=== PATIENT | female | born 1945 | race Caucasian/White ===

== ENCOUNTER 2020-07-07 11:11 | Outpatient (CLI) | payer MEDICARE, SELFPAY ==
--- NOTE | 2020-07-07 | ECG_ITS ---
Measurements Intervals [place] Rate: 60 P: -19 [place]: 132 QRS: 4 QRSD: 88 T: 67 QT: 426 QTc: 429 Interpretive Statements SINUS RHYTHM INCOMPLETE RIGHT BUNDLE BRANCH BLOCK LEFT VENTRICULAR HYPERTROPHY WITH ST-T CHANGE BORDERLINE ECG Electronically Signed On 07-07-2020 12:11:07 CDT by Nestor Anaya D.O.
--- NOTE | ~2020-07-07 | XR_ITS ---
EXAMINATION: XR chest 2V DATE: 07/07/2020 12:18 INDICATION: Chest pain, unspecified. TECHNIQUE: Frontal and lateral views of the chest were obtained. COMPARISON: Chest single view 05/16/2005 FINDINGS: The chest demonstrates clear lungs without pneumonia, pleural effusion, or pneumothorax. Th e heart size is normal. Median sternotomy wires and mediastinal surgical clips are seen, likely from prior coronary artery bypass grafting. Surgical clips in the right upper quadrant are likely from cho lecystectomy. IMPRESSION: 1. No acute cardiopulmonary disease. Reviewed, dictated and finalized at location B.
[2020-07-07 11:39] LABS: Hematocrit 41.9 % (37.0-47.0); Hemoglobin 14.2 g/dL (12.0-15.0); Mean Corpuscular HGB Conc 33.9 g/dl (32-36); Mean Corpuscular Hemoglobin 30.4 pg (26-34); Mean Corpuscular Volume 89.7 fl (80-100); Mean Platelet Volume 10.9 fl (7.4-10.4); Platelet Count Result 192 k/mm3 (150-375); Red Blood Count 4.67 M/mm3 (4.2-5.4); Red Cell Distribution Width 13.5 % (11.5-14.5); White Blood Count 8.3 K/mm3 (4.5-10.0)
[2020-07-07 11:52] LABS: Alanine Aminotransferase 19 U/L (4-35); Albumin Level 4.5 g/dL (3.5-5.1); Alkaline Phosphatase 55 U/L (38-126); Anion Gap 8 mmol/L (8-16); Aspartate Amino Transferase 38 U/L (14-36); Bilirubin,Total 0.7 mg/dL (0.2-1.3); Blood Urea Nitrogen 18 mg/dL (7-17); Calcium 9.1 mg/dL (8.4-10.2); Carbon Dioxide 28 mmol/L (22-30); Chloride 102 mmol/L (98-107); Cholesterol 140 mg/dL (0-200); Estimated Glomerular Filt Rate > 60; Glucose 120 mg/dL (65-105); HDL Direct 60 mg/dL; Potassium 4.1 mmol/L (3.4-5.0); Sodium 138 mmol/L (137-145); Triglycerides 77 mg/dL (<150)
[2020-07-07 11:54] LABS: D Dimer 0.41 ug/mL (<0.48)
[2020-07-07 12:03] LABS: LDL Cholesterol Direct 59 mg/dL; Troponin I < 0.012 ng/mL (0.000-0.034)
== END 2020-07-07 11:12 | disposition home or self-care (01) ==
PROVIDERS: PCP Family Medicine; Visit Provider Family Medicine
DX: E78.2 Mixed hyperlipidemia (principal); E03.9 Hypothyroidism, unspecified; I10 Essential (primary) hypertension; R06.02 Shortness of breath; R07.9 Chest pain, unspecified; I25.10 Atherosclerotic heart disease of native coronary artery without angina pectoris; E11.9 Type 2 diabetes mellitus without complications; I45.10 Unspecified right bundle-branch block
CPT/HCPCS: 36415; 71046; 80053; 80061; 83036; 84443; 84484; 85027; 85380; 93005

== ENCOUNTER 2020-12-12 11:21 | Outpatient (CLI) | payer MEDICARE, SELFPAY ==
--- NOTE | ~2020-12-12 | XR_ITS ---
EXAMINATION: XR wrist LT min 3V DATE: 12/12/2020 11:41 INDICATION: Left wrist joint pain. TECHNIQUE: 4 views of left wrist were obtained. COMPARISON: None. FINDINGS: There is volar tilt of lunate, consistent with volar intercalated segmental instability. Sc apholunate dissociation is noted with rotatory subluxation of the scaphoid. No fracture. There is mil d osteoarthritis of first carpometacarpal joint. There is a 4 mm loose body dorsal to the carpus. IMPRESSION: 1. Scapholunate dissociation. 2. Volar intercalated segmental instability (VISI). 3. Mild osteoporosis of first carpometacarpal joint. 4. Loose body dorsal to the carpus. Reviewed, dictated and finalized at location B. TAIN SERVICES MANAGER
--- NOTE | ~2020-12-12 | XR_ITS ---
EXAMINATION: XR wrist RT min 3V DATE: 12/12/2020 11:41 INDICATION: Right wrist joint pain. TECHNIQUE: 4 views of right wrist were obtained. COMPARISON: None. FINDINGS: Bone alignment is normal. No fracture. There is moderate osteoarthritis of first carpometac arpal joint, severe osteoarthritis of third metacarpophalangeal joint, and mild osteoarthritis of fir st and second metacarpophalangeal joints. IMPRESSION: 1. Polyarticular osteoarthritis. Reviewed, dictated and finalized at location B. [employer]OR [employer] HANDLING
== END 2020-12-12 11:22 | disposition home or self-care (01) ==
PROVIDERS: PCP Family Medicine; Visit Provider Plastic Surgery
DX: M19.031 Primary osteoarthritis, right wrist (principal); M19.032 Primary osteoarthritis, left wrist; M81.0 Age-related osteoporosis without current pathological fracture; M24.032 Loose body in left wrist
CPT/HCPCS: 73110

== ENCOUNTER 2021-04-07 08:44 | Outpatient (CLI) | payer MEDICARE, SELFPAY ==
--- NOTE | ~2021-04-07 | DEXA_ITS ---
Bone Density Report Name: Rubia Kelly Age: 75 Sex: Female Ethnicity: White Date of : 1945 Indication: postmenopausal; height loss; prior fracture; Referring Provider: TED ELLSWORTH Study: Bone densitometry was performed. Exam Date: April 07, 2021 Accession number: [id number] Bone Density: Region BMD T-score Z-score Classification AP Spine (L1, L2, L3) 1.172 1.4 3.7 Normal Femoral Neck (Left) 0.745 -0.9 1.1 Normal Total Hip (Left) 0.824 -1.0 0.8 Normal Total Hip Bilateral Avg 0.842 -0.8 1.0 Normal Femoral Neck (Right) 0.710 -1.3 0.8 Osteopenia Total Hip (Right) 0.859 -0.7 1.1 Normal World Health Organization criteria for BMD impression classify patients as: Normal (T-score at or above -1.0), Osteopenia (T-score between -1.0 and -2.5), or Osteoporosis (T-score at or below -2.5). 10-year Fracture Risk(1): Major Osteoporotic Fracture 15% Hip Fracture 2.3% Reported Risk Factors: [place] (), Neck BMD=0.710, BMI=31.9, previous fracture (1) FRAX(R) Version 3.08. Fracture probability calculated for an untreated patient. Fracture probability may be lower if the patient has received treatment. Clinical Information Provided by Patient: Has had a low trauma fracture Patient maximum height was 65 Menopause Age: 56 No regular weight bearing exercise Does not regularly consume dairy products Drinks caffeinated beverages Onset of menses at age 14 Number of children 2 Impression: The patient has low bone mass, based on the Right Femoral Neck T-score. The patient has an estimated ten-year risk of hip fracture of 2.3% and an estimated ten-year risk of major fracture of 15%, based on the WHO FRAX algorithm. The patient has risk factors, including: previous fracture. Discussion: BONE DENSITY IS LOW AT ONE OR MORE SKELETAL SITES. This patient's lowest T-score is low at one or more skeletal sites. It meets the World Health Organization's (WHO) criteria for ?low bone mass? (T-score between -1.0 and -2.5). The patient's 10-year risk of fracture as calculated by FRAX is less than the threshold where pharmacological therapy is recommended by the National Osteoporosis Foundation (NOF). However, all treatment decisions require clinical judgment and consideration of individual patient factors, including patient preferences, comorbidities, previous drug use, risk factors not captured in the FRAX model (e.g., frailty, falls, vitamin D deficiency, increased bone turnover, interval significant decline in bone density) and possible under or overestimation of fracture risk by FRAX. The patient should follow a healthful lifestyle (good nutrition with adequate calcium and vitamin D, and appropriate weight-bearing exercise). Follow-Up: Consider repeating this study in 2 to 3 years to reassess this patient's status, or so
== END 2021-04-07 08:45 | disposition home or self-care (01) ==
PROVIDERS: PCP Family Medicine; Visit Provider Family Medicine
DX: Z78.0 Asymptomatic menopausal state (principal); M85.88 Other specified disorders of bone density and structure, other site
CPT/HCPCS: 77080

== ENCOUNTER → 2022-07-18 08:11 | Outpatient (CLI) | payer MEDICARE, SELFPAY ==
--- NOTE | ~2022-07-18 | XR_ITS ---
EXAMINATION: XR lumbar spine min 4V DATE: 07/18/2022 08:21 INDICATION: Low back pain TECHNIQUE: Anteroposterior, lateral, and bilateral oblique views of the lumbar spine, and cone-down l ateral view of the lumbosacral junction were obtained. COMPARISON: 07/08/2014 FINDINGS: There are stable changes of L4-5 posterior fusion on the right, anterior interbody fusion, and laminectomy. There are 5 mm of stable anterolisthesis of L4 on L5. There is no fracture. There is moderate to severe loss of intervertebral disc space height throughout the lumbar spine. The vertebr al body heights are maintained. Calcified atherosclerosis is noted. There is moderate facet osteoarth ritis of the lower lumbar spine. A moderate volume of colonic stool is present. Surgical clips in the right upper quadrant are likely from prior cholecystectomy. IMPRESSION: 1. Postsurgical changes and severe lumbar spondylosis without acute findings or significant interval change. Reviewed, dictated and finalized at location B.
== END ==
PROVIDERS: PCP Family Medicine; Visit Provider Family Medicine
DX: M47.896 Other spondylosis, lumbar region (principal)
CPT/HCPCS: 72110

== ENCOUNTER 2025-03-04 16:27 | Emergency (ER) | payer MEDICARE, SELFPAY ==
--- NOTE | ~2025-03-04 | XR_ITS ---
EXAMINATION: XR chest 2V DATE: 03/04/2025 17:10 INDICATION: Rib cage pain post fall TECHNIQUE: PA and lateral views of the chest were obtained. COMPARISON: Chest radiograph dated 07/07/2020 FINDINGS: Mild bibasilar opacities and would favor atelectasis or minimal pulmonary edema or pneumonia. No pleu ral effusion or pneumothorax. The cardiomediastinal silhouette is normal. Mild cardiomegaly. Median s ternotomy wires, ostial markers and mediastinal surgical clips consistent with prior coronary artery bypass grafting. Cholecystectomy clips in the right upper quadrant. Severe thoracic and upper lumbar spondylosis. IMPRESSION: 1. Mild bibasilar opacities and favor atelectasis or minimal pulmonary edema over pneumonia. 2. Cardiomegaly. Reviewed, dictated and finalized at location A. IMPRESSION: 1. Mild bibasilar opacities and favor atelectasis or minimal pulmonary edema ov er pneumonia. 2. Cardiomegaly.
--- NOTE | ~2025-03-04 | CT_ITS ---
CT thoracic lumbar wo con Ordering provider: Deysi Montilla PA-C History: . back pain, fall . Comparison: None. Technique: CT thoracic and lumbar spine without contrast. Automated exposure control and iterative r econstruction technique were employed. The dose-length product was 872.39 mGy-cm. FINDINGS: VERTEBRAE: Normal height and alignment. No subluxation or visible acute fracture. Degenerative change s of the spine and both thoracic and lumbar area. Postoperative changes in the sternum Postoperative changes in the lumbar spine. Minimal anterolisthesis at the level of L4-L5 and L5-S1. DISC SPACES: Degenerative disc disease at multiple levels in the lower thoracic area.. Narrowing of a ll the disc spaces of the lumbar area. No significant stenosis as visualized. Multilevel facet joint disease in the lumbar area. Narrowing of the left foramina at the level of L3- L4 and L2-L3. Diffuse disc bulge at the level of L5-S1 with bilateral narrowing of the foramina and r ight nerve root compression. PARASPINOUS SOFT TISSUES: Normal. Bilateral sacroiliacs. IMPRESSION: No acute osseous abnormality of the thoracic spine. Multilevel degenerative disc disease in the lumbar and thoracic area. Reviewed, dictated and finalized at location A.
--- NOTE | ~2025-03-04 | CT_ITS ---
EXAMINATION: CT cervical spine wo con DATE: 03/04/2025 17:18 INDICATION: Fall with head injury TECHNIQUE: Computed tomography (CT) of the cervical spine was performed without intravenous contrast. Automated exposure control and iterative reconstruction technique were employed. The dose-length pro duct was 258.09 mGy-cm. COMPARISON: None FINDINGS: Mild reversal of the normal lordosis in the mid cervical spine. 2 mm anterolisthesis C7 on T1 and 1 m m anterolisthesis C3 on C4 and C4 on C5. Severe osteoarthritis at the atlantoaxial articulation. Vert ebral body heights are normal. No fracture. Severe disc height loss with degenerative endplate change s, severe uncovertebral osteoarthritis and prominent posterior endplate osteophytes resulting in mild central canal stenosis at C5-C6 and moderate left-sided predominant disc height loss at C6-C7. Mild disc height loss at C2-C3 and mild to moderate disc height loss at C4-C5 and C7-T1. There is multilev el severe bilateral cervical facet osteoarthritis with fusion at the bilateral C2-C3 facet joints. Th is results in moderate neural from stenosis on the right at C3-C4 and on the left at C4-C5 and C5-C6 with mild neural foraminal stenosis at many of the remaining cervical neural foramina. Atheroscleroti c calcifications at the bilateral carotid bulbs. Cervical soft tissues are otherwise unremarkable. Mi nimal biapical pleural-parenchymal scarring. IMPRESSION: 1. Severe cervical spondylosis. No acute osseous abnormality. Reviewed, dictated and finalized at location A.
--- NOTE | ~2025-03-04 | CT_ITS ---
EXAMINATION: CT brain wo con DATE: 03/04/2025 17:18 INDICATION: Head injury post fall TECHNIQUE: Computed tomography (CT) of the head was performed without intravenous contrast. Sagittal and coronal reconstructions were performed. The mA was adjusted according to patient size. Iterative reconstruction technique was employed. The dose-length product was 605.33 mGy-cm. COMPARISON: None FINDINGS: No fracture. No acute intracranial hemorrhage, acute infarction or abnormal extra axial fluid collect ion. Small lacunar infarcts at the bilateral basal ganglia and thalami. There is extensive scattered white matter hypoattenuation consistent with chronic small vessel ischemic disease. Symmetric promine nce of the sulci consistent with mild age-appropriate diffuse cerebral volume loss. Ventricles are no rmal and symmetric. No mass/mass effect. The orbits, paranasal sinuses and mastoid air cells are norm al. IMPRESSION: 1. No fracture or acute intracranial process. 2. Small old lacunar infarcts at the bilateral basal ganglia and thalami. 3. Age-related changes including mild diffuse volume loss and extensive scattered white matter hypoat tenuation consistent with chronic small vessel ischemic disease. Reviewed, dictated and finalized at location A. IMPRESSION: 1. No fracture or acute intracranial process. 2. Small old lacunar infarcts at the bilateral basal ganglia and thalami. 3. Age-related changes including mild diffuse volume loss and extensive scatter ed white matter hypoattenuation consistent with chronic small vessel ischemic d isease.
--- OUTSIDE RECORDS SUMMARY | 2025-03-04 16:30 | XMS_ITS ---
Author Organization [facility] [address] Address [address] [place] [address] Care Team Providers Care Lab Tech Name Role Phone Sindy Carrillo MD Primary Care Provider [phone] Emerald Evans NP Unavailable [phone] Luis E Banks MD Unavailable [phone] Active Problems Problem Noted Date Diagnosed Date Endometrial cancer 03/04/2024 Cancer Staging:Pathologic stage from 03/15/2024:FIGO Stage IB(pT1b, pN0, cM0) - Signed by Ashleigh Carreon, ITZEL on 03/31/2024 Abnormal stress test 08/07/2023 Bradycardia 11/03/2019 History of coronary artery bypass surgery 2015 Overview (02/28/2017): Hx of CABG Coronary artery disease of n ative artery of [place] heart with stable angina pectoris ([facility]) 08/16/2016 Overview (02/28/2017): CAD in [place] artery Assessment & Plan (07/15/2017 4:46 PM CDT): Twenty weight: CABG 2014: Lexiscan showed no ischemia, EF 72% Doing well with no angina on aspirin, beta-augustine, statin, and LEANN-inhibitor. Hyperlipidemia associated with type 2 diabetes case espino 08/16/2016 Overview (02/28/2017): Hypercholesteremia Essential hypertension 08/16/2016 Overview (02/28/2017): Essential hypertension Assessment & Plan (07/15/2017 4:47 PM CDT): Hypertension is improving with treatment. Continue current medications. Blood pressure will be reassessed at the next regular appointment. Obesity (BMI 30-39.9) 08/16/2016 Overview (02/28/2017): Obesity (BMI 30-39.9) Assessment & Plan (07/15/2017 4:47 PM CDT): Obesity is unchanged. Angina pectoris 01/19/2008 Overview (02/27/2017): ANGINA PECTORIS NEC/NOS Current Treatment and Therapy Plans No current plan information found. Past Treatment and Therapy Plans No past plan information found. Lifetime Dose Tracking * Chemical Lifetime Dose Automatic Entry Manual Entr y Air kerma at the reference point (Ka,r) 214 mGy 0 mGy 214 mGy Resolved Problems Problem Noted Date Diagnosed Date Resolved Date Orthopnea 07/15/2017 03/05/2024 Assessment & Plan (07/15/2017 4:49 PM CDT): Had an episode of possible orthopnea several months ago with no recurrence BNP slightly elevated 256. Patient could have some diastolic dysfunction and perhaps very mild diastolic CHF but since has been no recurrence of the orthopnea for several months I do not think he a major workup is in order. Will check an EKG for any changes to suggest any recent SD etc EF has been good in 2016, so likely still fine. Pure hypercholesterolemia 01/19/2008 Overview (02/28/2017): PURE HYPERCHOLESTEROLEM Assessment & Plan (07/15/2017 4:48 PM CDT): 05/2017 total cholesterol 128, LDL 56, at goal with rosuvastatin 40 mg daily.
--- OUTSIDE RECORDS SUMMARY | 2025-03-04 16:30 | XMS_ITS | Clinical Summary ---
Author Organization [facility] Address [address] [place] [address] Care Team Providers Care Teacher Dramatics Name Role Phone Sindy Carrillo MD Primary Care Provider [phone] Social History Tobacco Use Types Packs/Day Years Used Date Smoking Tobacco: Never Assessed Comments Unknown Sex and Gender Information Value Date Recorded Sex Assigned at Not on file Legal Sex Female 8:19 PM CDT Gender Identity Not on file Sexual Orientation Not on file Last Filed Vital Signs Vital Sign Reading Time Taken Comments Blood Pressure 90/60 07/11/2014 12:21 PM CDT Pulse 60 07/11/2014 12:21 PM CDT Temperature - - Respiratory Rate - - Oxygen Saturation - - Inhaled Oxygen Concentration - - Weight 95.3 kg (210 lb) 07/11/2014 12:21 PM CDT Height 160 cm (5' 3 ) 07/11/2014 12:21 PM CDT Body Mass Index 37.2 07/11/2014 12:21 PM CDT Plan of Treatment Health Maintenance Due Date Last Done Comments Hepatitis C 1963 DTaP, Tdap and Td Vaccines ( 1 - Tdap) 1965 Zoster Vaccines (1 of 2) 1996 Dexa Scan (General) 2011 Pneumococcal Vaccine: 65+ Ye ars (1 of 1 - PCV) 2011 RSV Immunization or 60+ Years (1 - 1-dose 75+ series) 2021 COVID-19 Vaccine ( - 2023-2 5 season) 2024 Meningococcal B Vaccine Aged Out No l onger eligible based on patient's age to complete this topic Meningococcal Vaccine Aged Out No tonya noa eligible based on patient's age to complete this topic RSV Immunizations Under 20 Months Aged Out No longer eligible based on patient's age to complete this topic Care Teams Teacher Dramatics Relationship Specialty Start Date End Date Sindy Carrillo MD PCP - General 01/11/14
--- OUTSIDE RECORDS SUMMARY | 2025-03-04 16:30 | XMS_ITS | Referral Summary ---
Author Organization [facility] [address] Address [address] [place] [address] Care Team Providers Care Publicity Consultant Name Role Phone Sindy Carrillo MD Primary Care Provider [phone] Emerald Evans NP Unavailable [phone] Luis E Banks MD Unavailable [phone] Encounters Date Type Department Care Team Description 01/24/2025 2:00 PM ADVISORY SERVICES ASSOCIATE Office Visit [facility] Obstetrics and Gynecology [address] [facility] [address] [place] [address] Ashleigh Carreon NP Encounter for routine cancer follow-up (Primary Dx); Endometrial cancer (HCC) 12/23/2024 Telephone [facility] Obstetrics and Gynecology [address] [place] [address] Lary Dutton from Last 3 Months Allergies Active Allergy Reactions Criticality Noted Date Comments Naproxen Hives Medium Penicillins Rash,Other (See comments),Fever High Skin peeled off Medications aspirin 81 mg tablet Take one by mouth one time per day 0 0 02/12/20 08 Active Additional Information Patient taking differently:81 mgoral Every morning, Indications: prevention of thrombosis, Informant: Self, Reported on 03/11/2024 calcium carbonate-vitamin D3 (OS-TANNER 500 + D3) 1,250mg (500mg elemental) - 200 units per tablet Take as directed 0 0 03/08/20 08 Active Additional Information Patient taking differently: 1 tablet oral Every morning, Indications: Hypocalcemia Prevention, Prevention of Vitamin D Deficiency, Informant: Self, Reported on 03/11/2024 levothyroxine (SYNTHROID) 25 mcg tablet take 1 tablet by oral route every day 0 0 07/03/20 15 Active Additional Information Patient taking differently:25 mcgoral Daily (early AM), Indications: hypothyroidism, Informant: Self, Reported on 03/11/2024 furosemide (LASIX) 40 mg tablet Take 1/2 by mouth one time per day 45 3 03/08/20 08 Active Additional Information Patient taking differently:40 mgoral Every morning, Indications: Edema, Informant: Self, Reported on 03/11/2024 cholecalciferol (VITAMIN D3) 1,000 unit capsule take 1 by oral route every day 0 01/14/20 11 Active Additional Information Patient taking differently: 1,000 Units oral Every morning, Indications: Vitamin D Deficiency, Informant: Self, Reported on 03/11/2024 cyanocobalamin (VITAMIN B-12) 2,500 mcg tablet, sublingual take as directed 0 03/23/20 12 Active Additional Information Patient taking differently:2,500 mcgoral Every morning, Indications: Prevention of Vitamin B12 Deficiency, Informant: Self, Reported on 03/11/2024 sertraline (ZOLOFT) 50 mg tablet Take one by mouth one time per day 0 0 01/19/20 08 Active Additional Information Patient taking differently:50 mgoral Nightly, Indications: Anxiety with Depression, Informant: Self, Reported on 03/11/2024 multivitamin,tx-min erals (MULTI-VITAMIN HP/MINERALS) capsule Take one by mouth one time per day 0 0 01/19/20 08 Active Additional Information Patient taking differently: 1 capsule oral Every morning, Indications: Vitamin Deficiency Prevention, Informant: Self, Reported on 03/11/2024 acetaminophen-aspir in-caffeine (EXCEDRIN MIGRAINE) 250-250-65 mg per tabletIndications:P ain Take 1 tablet by mouth every 6 (six) hours as needed Active nitroglycerin (NITROSTAT) 0.4 mg SL tabletIndications:a cute episode of anginal pain,shortness with breath Place 1 tablet (0.4 mg total) under the tongue every 5 (five) minutes as needed 01/08/20 23 Active rosuvastatin (CRESTOR) 40 mg tablet TAKE 1 TABLET BY MOUTH DAILY 90 tablet 3 01/19/20 24 Active Additional Information Patient taking differently:40 mg oralNightly, Indications: hyperlipidemia, Informant: Self, Reported on 03/11/2024 potassium chloride ER 10 mEq CR capsule Take 1 tablet/capsule (10 mEq total) by mouth 2 (two) times a day 07/05/20 24 Active isosorbide mononitrate ER (IMDUR) 60 mg 24 hr tabletIndications:p revention of anginal pain in coronary artery disease Take 1 tablet (60 mg total) by mouth every morning 90 tablet 3 09/24/20 24 025 Active ramipriL (ALTACE) 10 mg capsuleIndications: hypertension Take 1 capsule (10 mg total) by mouth every morning 90 capsule 1 01/25/20 25 Active metoprolol XL (TOPROL-XL) 25 mg extended release tabletIndications:h ypertension Take 0.5 tablets (12.5 mg total) by mouth every morning 45 tablet 2 03/02/20 25 Active metoprolol XL (TOPROL-XL) 25 mg extended release tabletIndications:C oronary arteriosclerosis in [place] artery,Essential hypertension TAKE ONE-HALF TABLET BY MOUTH DAILY 45 tablet 3 01/19/20 24 025 Disconti nued(Reo rder) Active Problems Problem Noted Date Diagnosed Date Endometrial cancer 03/04/2024 Cancer Staging:Pathologic stage from 03/15/2024:FIGO Stage IB(pT1b, pN0, cM0) - Signed by Ashleigh Carreon NP on 03/31/2024 Abnormal stress test 08/07/2023 Bradycardia 11/03/2019 History of coronary artery bypass surgery 2015 Overview (02/28/2017): Hx of CABG Coronary artery disease of n ative artery of [place] heart with stable angina pectoris (CMS/HCC) 08/16/2016 Overview (02/28/2017): CAD in [place] artery Assessment & Plan (07/15/2017 4:46 PM [...] pectoris 01/19/2008 Overview (02/27/2017): ANGINA PECTORIS NEC/NOS Resolved Problems Problem Noted Date Diagnosed Date [...] for any changes to suggest any recent [place] etc EF has been good in 2016, so likely still fine. Pure hypercholesterolemia 01/19/2008 Overview (02/28/2017): PURE HYPERCHOLESTEROLEM Assessment & Plan (07/15/2017 4:48 PM CDT): 05/2017 total cholesterol 128, LDL 56, at goal with rosuvastatin 40 mg daily. Immunizations Immunization Administration Dates Next Due Influenza, Quadrivalent, Hig h Dose, Preservative Free, Intrr 08/28/2020 Influenza, Trivalent, High D ose, Split, Preservative Free, Intramuscular 09/15/2018 Influenza, Trivalent, IM (MDV) 09/29/2014,2012 Pneumococcal Conjugate PCV 13 08/06/2016 Pneumococcal Polysaccharide PPV23 10/15/2017 Social History Tobacco Use Types Packs/Day Years Used Date Smoking Tobacco: Never Smokeless Tobacco: Never Tobacco Cessation:Counseling Given: Not Answered Alcohol Use Standard Drinks/Week Comments No 0 (1 standard drink = 0.6 oz pur e alcohol) AUDIT-C Answer Date Recorded Q1: How often do you have a drink containing alcohol? Never 03/15/2024 Q2: How many drinks containi ng alcohol do you have on a typical day when you are drinking? Patient does not drink Q3: How often do you have si x or more drinks on one occasion? Never 03/15/2024 Personal Safety Answer Date Recorded Have you ever been in or are you currently in a harmful physical or emotional relationship or is someone making you feel afraid or unsafe? Denies 03/15/2024 Comments No Sex and Gender Information Value Date Recorded Sex Assigned at Not on file Legal Sex Female 4:40 PM ADVISORY SERVICES ASSOCIATE Gender Identity Female 07/09/2023 10:03 PM CDT Sexual Orientation Straight 07/09/2023 10 :03 PM CDT Last Filed Vital Signs Vital Sign Reading Time Taken Comments Blood Pressure 116/68 01/24/2025 1:54 PM ADVISORY SERVICES ASSOCIATE Pulse 60 01/24/2025 1:54 PM ADVISORY SERVICES ASSOCIATE Temperature 36.8 C (98.2 F) 01/24/2025 1:54 PM ADVISORY SERVICES ASSOCIATE Respiratory Rate 16 09/02/2024 10:45 AM CDT Oxygen Saturation 95% 01/24/2025 1:54 PM ADVISORY SERVICES ASSOCIATE Inhaled Oxygen Concentration - - Weight 75.8 kg (167 lb 1.6 oz) 01/24/2025 1:54 P M ADVISORY SERVICES ASSOCIATE Height 157.5 cm (5' 2 ) 09/24/2024 11:28 AM CDT Body Mass Index 30.56 09/24/2024 11:28 AM CDT Plan of Treatment Not on file Medical Devices Implanted Type Area R Programmer Device Identifier Shelf Expiration Date Model / Serial / Lot [employer] Device Closure Vascade Od5 Fr Femoral Artery [id number] - [id number] Implanted:Qty: 1 on 08/27/2023 by Charlotte Goode MD at [facility] 06/09/2025 [id number] / / [id number] Procedures Procedure Name Priority Date/Time Associated Diagnosis Comments POCT LIPID PANEL Routine 09/24/2024 11:4 2 AM CDT Lipid screening EGFR Routine 03/15/2024 10:50 PM CDT from Last 3 Months or Most Recently Relevant to Health Maintenance Results * POCT lipid panel (09/24/2024 11:42 AM CDT) Cholesterol, POC 135 mg/dL HDL, POC 66 mg/dL Triglycerides, POC 68 mg/dL LDL Cholesterol POC 55 mg/dL Chol/HDL Ratio, POC 0.8 Non-HDL Cholesterol, POC 69 mg/dL Cholesterol Total, POC 135 mg/dL Capillary blood 09/24/2024 1 1:42 AM CDT Emerald Evans NP POINT OF CARE TEST ORDERA BLES Final Result * eGFR (03/15/2024 10:50 PM CDT) eGFR 79 >=60 mL/min/1. 73 m2 Comment: Interpretive Data Reference Interval Normal >/= 90 mL/min/1.73m2 Mildly decreased* 60 - 89 mL/min/1.73m2 Mildly to moderately decreased 45 - 59 mL/min/1.73m2 Moderately to severely decreased 30 - 44 mL/min/1.73m2 Severely decreased 15 - 29 mL/min/1.73m2 Kidney Failure < 15 mL/min/1.73m2 *Relative to young adult level Estimated glomerular filtration rate is determined by the 2020 CKD-EPI equation recommended by the National Kidney Foundation (A Unifying Approach to GFR Estimation: Recommendations of the NKF-ASK Task Force on Reassessing the Inclusion of Race in Diagnosing Kidney Disease, JASN 2021). The CKD-EPI equation should not be used for patients with unstable renal function and has not been validated in children and those over 70. Current interpretive data was last reviewed 2021. Blood 03/15/2024 10:5 0 PM CDT 03/15/2024 11:10 PM CDT us Tanika [place] MD LAB BLOOD ORDERABLES Marlena galvan Result Performing Organization Address City/State/[facility] Co de Phone Number [facility] [place] [address] from Last 3 Months or Most Recently Relevant to Health Maintenance Insurance [employer] MEDICARE [facility] Address: [address] [address] MEDICARE ADVANTAGE [facility] Address: [address] [place] [id number] [facility] MEDICARE [facility]AGE [facility] Address: [facility] [address] [place] [address] Advance Directives For more information, please contact: [phone] * Full Code (Latest Code Status on File) Date Activated Date Inactivated Comments 03/15/2024 5:08 PM 03/16/2024 5:35 PM * Full Code Date Activated Date Inactivated Comments 08/27/2023 12:10 PM 08/27/2023 6:25 PM Care Teams Publicity Consultant Relationship Specialty Start Date End Date Sindy Carrillo MD PCP - General 03/12/07 Emerald Evans NP [address] [place] [address] Nurse Practitioner Cardiovascular Disease 03/31/24 Luis E Banks MD [address] [place] [address] Consulting Physician Obstetrics and Gynecology 03/31/24
--- OUTSIDE RECORDS SUMMARY | 2025-03-04 16:31 | XMS_ITS | Clinical Summary ---
Author Organization [facility] [address] Address [address] [place] [address] Care Team Providers Care Mining Captain Name Role Phone Sindy Carrillo MD Primary Care Provider [phone] Emerald Evans NP Unavailable [phone] Luis E Banks MD Unavailable [phone] Allergies Active Allergy Reactions Criticality Noted Date [...] mg extended release tabletIndications:C oronary arteriosclerosis in [place] artery,Essential hypertension TAKE ONE-HALF TABLET BY MOUTH [...] artery disease of n ative artery of [place] heart with stable angina pectoris ([facility]) 08/16/2016 Overview (02/28/2017): CAD in [place] artery Assessment & Plan (07/15/2017 4:46 PM CDT): Twenty weight: CABG 2014: Lexiscan showed no ischemia, EF 72% Doing well with no angina on aspirin, beta-augustine, statin, and LEANN-inhibitor. Hyperlipidemia associated with type 2 diabetes m ellitus 08/16/2016 Overview (02/28/2017): Hypercholesteremia Essential hypertension 08/16/2016 [...] for any changes to suggest any recent [place] etc EF has been good in 2016, so likely still fine. Pure hypercholesterolemia 01/19/2008 Overview (02/28/2017): PURE HYPERCHOLESTEROLEM Assessment & Plan (07/15/2017 4:48 PM CDT): 05/2017 total cholesterol 128, LDL 56, at goal with rosuvastatin 40 mg daily. Encounters Date Type Department Care Team Description 01/24/2025 2:00 PM MAINTENANCE TECHNICIAN Office Visit [facility] Obstetrics and Gynecology [address] [place] [address] [place] [phone] Ashlegih Carreon NP Encounter for routine cancer follow-up (Primary Dx); Endometrial cancer (HCC) 12/23/2024 Telephone [facility] Obstetrics and Gynecology [address] [place] [address] [place] [id number] Lary Dutton from Last 3 Months Immunizations Immunization Administration Dates Next Due Influenza, Quadrivalent, Hig h Dose, Preservative Free, Intrr 08/28/2020 Influenza, Trivalent, High D ose, Split, Preservative Free, Intramuscular 09/15/2018 Influenza, Trivalent, IM (MDV) 09/29/2014,2012 Pneumococcal Conjugate PCV 13 08/06/2016 Pneumococcal Polysaccharide PPV23 10/15/2017 Surgical History Surgery Date Site/Laterality Comments TUBAL LIGATION OTHER SURGICAL HISTORY 11/24/1994 - 11/23/1995 : Foot LAPAROSCOPIC CHOLECYSTECTOMY 11/24/2003 - 11/23/2004 ORAL SURGERY CORONARY ARTERY BYPASS GRAFT 11/24/2007 - 11/23/2008 REPLACEMENT TOTAL KNEE BILATERAL 11/24/2009 - 11/23/2010 BACK SURGERY JOINT REPLACEMENT 2009 Medical History Medical History Date Comments Hx Other Medical Back Pain Hyperlipidemia Hypertension Coronary artery disease 2007 CABG. 20 14: Negative Lexiscan EF 72% Arthritis Not sure Heart disease 2007 PONV (postoperative nausea and vomiting) Hypothyroidism Family History Medical History Relation Name Comments Cancer Brother 1 Jim Dolanin Cancer Brother 2 Grupo Maya Cancer Brother 3 Zak Maya Lung cancer Brother 3 Zak Maya Cancer Father Dami Maya Esophageal cancer Father Dami Maya Early Mother Magdalena aMya Memory loss Sister Milly Alvarez Cancer Son Iglesia Kelly Other cancer Son Iglesia Kelly Rhabdomyosarcom a Relation Name Status Comments Brother 1 Jim Dolanin Brother 2 Grupo Dolanin Brother 3 Zak Maya Father Dami Maya Mother Magdalena Maya Sister Milly Alvarez Son Iglesia Kelly Social History Tobacco Use Types Packs/Day Years [...] on file Legal Sex Female 4:40 PM MAINTENANCE TECHNICIAN Gender Identity Female 07/09/2023 10:03 PM CDT Sexual Orientation Straight 07/09/2023 10 :03 PM CDT Obstetrics History Para Term AB IAB SAB Ectopic Multiple Livin g Live Births 2 2 2 1 2 Date Outcome GA Total Labor Labor/2nd/3rd Weight Sex Type Anes PTL Patricia A1 A5 Name Clin Term Term Last Filed Vital Signs Vital Sign Reading Time Taken Comments Blood Pressure 116/68 01/24/2025 1:54 PM MAINTENANCE TECHNICIAN Pulse 60 01/24/2025 1:54 PM MAINTENANCE TECHNICIAN Temperature 36.8 C (98.2 F) 01/24/2025 1:54 PM MAINTENANCE TECHNICIAN Respiratory Rate 16 09/02/2024 10:45 AM CDT Oxygen Saturation 95% 01/24/2025 1:54 PM MAINTENANCE TECHNICIAN Inhaled Oxygen Concentration - - Weight 75.8 kg (167 lb 1.6 oz) 01/24/2025 1:54 P M MAINTENANCE TECHNICIAN Height 157.5 cm (5' 2 ) 09/24/2024 11:28 AM CDT Body Mass Index 30.56 09/24/2024 11:28 AM CDT Plan of Treatment Health Maintenance Due Date Last Done Comments Albumin Creatinine Ratio, Urine 1945 Depression Screening 1945 Hemoglobin A1C 1946 Hepatitis C Screening 1946 Osteoporosis Screening-Bone Density Scan 1946 Dilated Eye Exam 1946 Foot Exam 1946 DTaP/Tdap/Td Vaccine (1 - Tdap) 1957 Hepatitis B Screening 1964 Zoster Vaccine (1 of 2) 1996 Well Visit 65+ 2011 eGFR 03/15/2025 03/15/2024, 03/11/2024 Fall Risk Assessment 03/16/2025 03/16/2024 Influenza Vaccine (Season Ended) 2025 08/28/2020, 09/15/2018, 09/29/2014, Additional history exists Lipid Panel 09/24/2025 09/24/2024, 01/22, 02/06/2022, Additional history exists Pneumococcal vaccine 65+ Completed 10/15/2017, 07/25 Medical Devices Implanted Type Area High School Math Teacher Device Identifier Shelf Expiration Date Model / Serial / Lot [employer] Device Closure Vascade Od5 Fr Femoral Artery [id number] - [id number] Implanted:Qty: 1 on 08/27/2023 by Charlotte Goode MD at [facility] 06/09/2025 [id number] / / [id number] Procedures Procedure Name Priority Date/Time Associated [...] of Race in Diagnosing Kidney Disease, JASN 2020). The CKD-EPI equation should not be used for patients with unstable renal function and has not been validated in children and those over 70. Current interpretive data was last reviewed 2021. Blood 03/15/2024 10:5 0 PM CDT 03/15/2024 11:10 PM CDT us Tanika Rowan MD LAB BLOOD ORDERABLES Marlena galvan Result [facility] Department [place] [address] from Last 3 Months or Most Recently Relevant to Health Maintenance Insurance UHC MEDICARE ADVANTAGE [facility] MEDICARE ADVANTAGE [facility] MEDICARE ADVANTAGE Advance Directives For more information, please contact: [phone] * Full Code (Latest Code Status on File) Date Activated Date Inactivated Comments 03/15/2024 5:08 PM 03/16/2024 5:35 PM * Full Code Date Activated Date Inactivated Comments 08/27/2023 12:10 PM 08/27/2023 6:25 PM Care Teams Mining Captain Relationship Specialty Start Date End Date Sindy Carrillo MD PCP - General 03/12/07 Emerald Evans NP [address] [place] [address] Nurse Practitioner Cardiovascular Disease 03/31/24 Luis E Banks MD [address] [place] [address] Consulting Physician Obstetrics and Gynecology 03/31/24
--- NOTE | 2025-03-04 16:42 | ED_ITS ---
HPI - Back Pain/Injury General Chief Complaint: Back Pain/Injury <Marina Rdz, CEO [employer] - Last Filed: 03/04/25 16:47> Stated Complaint: Fell down 3 steps-mid back injury <Marina Rdz CEO [employer] - Last Filed: 03/04/25 16:47> Time Seen by Provider: 03/04/25 16:35 <Marina Rdz CEO [employer] - Last Filed: 03/04/25 16:47> Focused HPI: Patient is a 79-year-old female who presents to the ER with complaints of back pain after a fall. She reports for she was pulling on something on are altered table when she year like go, stumbled backwards and fell on her right side. Patient denies any headache, loss of consciousness, chest pain, shortness of breath, or abdominal pain. She does reports she hit her head is unsure if she is on blood thinners. Patient endorses a history of ?heart problems, high blood pressure, uterine cancer, prediabetes, and hyperlipidemia. GENERAL: Well-appearing, well-nourished, and in no acute distress. HEAD: Normocephalic, atraumatic. CHEST: Clear to auscultation. ?No respiratory distress. HEART: Regular rate and rhythm.? NEURO: ?Alert and oriented x3. Patient screened in triage and initial orders placed.? ?Additional care and disposition to be based upon?diagnostic testing and treatment. <Marina Rdz, CEO [employer] - Last Filed: 03/04/25 16:47> Focused HPI: Patient is a 79-year-old female who presents to the ER with complaints of back pain after a fall. She reports for she was pulling on something on the alter table when she lost her balance and stumbled backwards and fell on her right side. Patient denies any headache, loss of consciousness, chest pain, shortness of breath, or abdominal pain. She does reports she hit her head is unsure if she is on blood thinners. Patient endorses a history of ?heart problems, high blood pressure, uterine cancer, prediabetes, and hyperlipidemia. GENERAL: Well-appearing, well-nourished, and in no acute distress. HEAD: Normocephalic, atraumatic. CHEST: Clear to auscultation. ?No respiratory distress. HEART: Regular rate and rhythm.? NEURO: ?Alert and oriented x3. Patient screened in triage and initial orders placed.? ?Additional care and disposition to be based upon?diagnostic testing and treatment. <Deysi Montilla PA-C - Last Filed: 03/04/25 19:20> Related Data Home Medications: Home Medications ?Medication ?Instructions ?Recorded ?Confirmed ?Last Taken ?Type albuterol sulfate 90 mcg/actuation 1 inh inhalation Q4H 01/07/23 11/30/24 Unknown History aerosol inhaler (ProAir HFA) ascorbate calcium (vitamin C) 500 500 mg PO DAILY 07/09/23 11/30/24 Unknown History mg tablet aspirin 81 mg tablet,delayed 81 mg PO DAILY 07/09/23 11/30/24 Unknown History release cholecalciferol (vitamin D3) 25 25 mcg PO DAILY 07/09/23 11/30/24 Unknown History mcg (1,000 unit) capsule isosorbide dinitrate 30 mg tablet 30 mg PO DAILY 07/09/23 11/30/24 Unknown History <Marina Rdz APRN - Last Filed: 03/04/25 16:47> Allergies/Adverse Reactions: Allergies Allergy/AdvReac Type Severity Reaction Status Date / Time Penicillins Allergy Severe Fatigued Verified 03/04/25 16:29 naproxen Allergy Mild Rash Verified 03/04/25 16:29 <Marina Rdz, [employer] - Last Filed: 03/04/25 16:47> Review of Systems Review of Systems: All systems reviewed & are unremarkable except as noted in HPI and below <Deysi Montilla PA-C - Last Filed: 03/04/25 19:20> COUNTS INCLUDE 234 BEDS AT THE [facility] Past Medical History Medical History: Medical History Endometrial cancer Mammogram declined (~07/10/21) Screening for malignant neoplasm of colon declined (~07/10/21) Arthritis Coronary artery disease Atherosclerotic heart disease of [place] coronary artery without angina pectoris Essential (primary) hypertension Hypothyroidism, unspecified Mixed hyperlipidemia Osteopenia Recurrent major depressive disorder, in full remission Type 2 diabetes mellitus without complications Vitamin D deficiency <Marina Rdz APRN - Last Filed: 03/04/25 16:47> Surgical History Surgical History: Surgical History History of esophagogastroduodenoscopy (EGD) History of knee replacement History of cholecystectomy H/O spinal fusion Hx of colonoscopy (~04/12/15) <Marina Rdz APRN - Last Filed: 03/04/25 16:47> Family History Family History: Family History Father Family history of malignant neoplasm of esophagus Other Family history of emphysema Family history of malignant neoplasm <Marina Rdz [employer] - Last Filed: 03/04/25 16:47> Social History Social History: Social History Smoking status: Never smoker Second hand tobacco smoke exposure: No Alcohol intake: never Substance use: never Substance use type: does not use Do You Feel Safe in your Home?: Yes Lack of Transportation: No Lack of Food: Never True Current Housing: I Have Housing Concerned About Future Housing: No Difficulty Paying Gas/Electric Bills: No Difficulty Paying for Meds: No Currently Unemployed: No Education: High School Diploma/GED Difficulty w/ Childcare or Family Care: No Living arrangements: with family Additional living arrangements comments: Occupation/Education: retired Gender identity (if verbalized by the patient): Female Sexual Orientation (if Verbalized by the Patient): Straight or Heterosexual Spiritual care concerns: No Agree to blood products: Yes <Marina Rdz, CEO [employer] - Last Filed: 03/04/25 16:47> Exam Narrative: GENERAL: Well-appearing, well-nourished, and in no acute distress. HEAD: Normocephalic, atraumatic. EYES: PERRLA and EOMI. ENT: Nares clear, no rhinorrhea or epistaxis. Mucous membranes moist. Oropharynx without tonsillar hypertrophy exudate or other lesions. Bilateral TMs pearly salmon non-bulging NECK: Supple. No adenopathy or masses. CHEST: Clear to auscultation. No respiratory distress. No wheezes rales or rhonchi HEART: Regular rate and rhythm. No murmur heard. Normal peripheral pulses. BACK: Tender to palpation of midline lower thoracic and upper lumbar spine EXTREMITIES: Normal range of motion. No edema. Strength equal in bilateral upper and lower extremities (5/5) SKIN: Warm, dry, no rash. NEURO: No focal deficits. Alert and oriented x3. Cranial nerves 2-12 grossly intact. Normal gait PSYCH: Normal mood and affect <Deysi Montilla PA-C - Last Filed: 03/04/25 19:20> Course Course Emergency Course: patient updated on workup and agrees with plan of care <Deysi Montilla PA-C - Last Filed: 03/04/25 19:20> Vital Signs Vital signs: Vital Signs Temperature 97.6 F 03/04/25 16:44 Pulse Rate 55 L 03/04/25 16:44 Respiratory Rate 16 03/04/25 16:44 Blood Pressure 131/56 L 03/04/25 16:44 Pulse Oximetry 99 03/04/25 16:44 Temperature 97.6 F 03/04/25 16:44 Pulse Rate 55 L 03/04/25 16:44 Respiratory Rate 16 03/04/25 16:44 Blood Pressure 131/56 L 03/04/25 16:44 Pulse Oximetry 99 03/04/25 16:44 <Marina Rdz, ELIE - Last Filed: 03/04/25 16:47> Vital Signs Temperature 97.6 F 03/04/25 16:44 Pulse Rate 55 L 03/04/25 16:44 Respiratory Rate 16 03/04/25 16:44 Blood Pressure 131/56 L 03/04/25 16:44 Pulse Oximetry 99 03/04/25 16:44 Temperature 97.6 F 03/04/25 16:44 Pulse Rate 55 L 03/04/25 16:44 Respiratory Rate 16 03/04/25 16:44 Blood Pressure 131/56 L 03/04/25 16:44 Pulse Oximetry 99 03/04/25 16:44 <Deysi Montilla PA-C - Last Filed: 03/04/25 19:20> MDM - Back Pain/Injury MDM Narrative Medical decision making narrative: Patient presents to the emergency department after a fall today with back pain. She is neurologically intact. Her vitals are stable. CT brain and cervical spine without acute findings. Chest x-ray shows atelectasis, cardiomegaly. CT thoracic/lumbar spine without acute findings. Patient updated on her workup and agrees with plan of care. She is to follow up with primary provider. She was given warnings to return to the ER <Deysi Montilla PA-C - Last Filed: 03/04/25 19:20> Differential Diagnosis Differential diagnosis: Likely strain of lumbar region, thoracic back pain and other (Compression fracture, contusion) <Deysi Montilla PA-C - Last Filed: 03/04/25 19:20> Imaging Data Radiologist's impression: ITS Impressions Head CT 03/04/25 17:26 IMPRESSION: 1. No fracture or acute intracranial process. 2. Small old lacunar infarcts at the bilateral basal ganglia and thalami. 3. Age-related changes including mild diffuse volume loss and extensive scattered white matter hypoattenuation consistent with chronic small vessel ischemic disease. Chest X-Ray 03/04/25 17:31 IMPRESSION: 1. Mild bibasilar opacities and favor atelectasis or minimal pulmonary edema over pneumonia. 2. Cardiomegaly. Cervical Spine CT 03/04/25 17:33 IMPRESSION: 1. Severe cervical spondylosis. No acute osseous abnormality. Thoracic/Lumbar Spine CT 03/04/25 19:02 IMPRESSION: No acute osseous abnormality of the thoracic spine. Multilevel degenerative disc disease in the lumbar and thoracic area. <Deysi Montilla PA-C - Last Filed: 03/04/25 19:20> Critical Care Time Critical Care Time Critical Care Time: No <Deysi Montilla PA-C - Last Filed: 03/04/25 19:20> Discharge Plan Discharge Clinical Impression: Fall down steps Qualifiers: Encounter type: initial encounter Qualified Code(s): W10.8XXA - Fall (on) (from) other stairs and steps, initial encounter Contusion Qualifiers: Encounter type: initial encounter Contusion area: thoracic wall Front or back of thoracic wall: back Thoracic wall location detail: right Qualified Code(s): S20.221A - Contusion of right back wall of thorax, initial encounter <Marina Rdz APRN - Last Filed: 03/04/25 16:47> Patient Disposition: Home <Marina Rdz APRN - Last Filed: 03/04/25 16:47> Condition: Stable <Marina Rdz APRN - Last Filed: 03/04/25 16:47> Instructions: Back Pain (ED) <Marina Rdz APRN - Last Filed: 03/04/25 16:47> Additional Instructions: Return to the emergency department if you experience fever, chest pain, shortness of breath, weakness, numbness, or any other symptoms that are concerning to you. Rest. Ice to the area. Over the counter pain medication as needed. Follow up with your primary care doctor <Marina Rdz APRN - Last Filed: 03/04/25 16:47> Patient Language: Yi <Marina Rdz APRN - Last Filed: 03/04/25 16:47> Prescriptions: No Action cholecalciferol (vitamin D3) 25 mcg (1,000 unit) capsule 25 mcg PO DAILY ascorbate calcium (vitamin C) 500 mg tablet 500 mg PO DAILY aspirin 81 mg tablet,delayed release (DR/EC) 81 mg PO DAILY isosorbide dinitrate 30 mg tablet 30 mg PO DAILY Rx Instructions: allow nitrate-free interval of 12-14 hrs per 24-hr period nitroglycerin 0.4 mg tablet, sublingual 0.4 mg SUBLINGUAL Q5M PRN (Reason: chest pain) Qty: 25 1RF Rx Instructions: do not exceed 3 doses per episode metoprolol succinate 25 mg tablet extended release 24 hr 12.5 mg PO DAILY Qty: 30 6RF ramipril 10 mg capsule 10 mg PO DAILY Qty: 90 0RF albuterol sulfate [ProAir HFA] 90 mcg/actuation HFA aerosol inhaler 1 inh inhalation Q4H furosemide 40 mg tablet See Rx Instructions .ROUTE .COMPLEX Qty: 45 4RF Dose Instruction: TAKE 1/2 TABLET DAILY Rx Instructions: TAKE 1/2 TABLET DAILY levothyroxine [Synthroid] 25 mcg tablet 25 mcg PO DAILY Qty: 90 3RF potassium chloride 10 mEq capsule, extended release 10 meq PO .M W F Qty: 38 3RF sertraline 50 mg tablet 50 mg PO DAILY Qty: 90 3RF rosuvastatin [Crestor] 40 mg tablet 40 mg PO DAILY Qty: 90 3RF <Marina Rdz APRN - Last Filed: 03/04/25 16:47> Follow-up/Referrals: Sindy Carrillo MD [Primary Care Provider] - <Marina Rdz APRN - Last Filed: 03/04/25 16:47>
[2025-03-04 16:44] VITALS: BP 131/56; PULSE 55; RESP 16; TEMP 36.4; O2SAT 99
--- OUTSIDE RECORDS SUMMARY | 2025-03-04 17:39 | XMS_ITS | Referral Summary ---
Author Organization [facility] [address] Address [address] [place] [address] Care Team Providers Care Lead Supply Worker Name Role Phone Sindy Carrillo MD Primary Care Provider [phone] Emerald Evans NP Unavailable [phone] Luis E Banks MD Unavailable [phone] Encounters Date Type Department Care Team Description 01/24/2025 2:00 PM BANKRUPTCY ASSISTANT Office Visit [facility] Obstetrics and Gynecology [address] [place] [address] Ashleigh Carreon NP Encounter for routine cancer follow-up (Primary Dx); Endometrial cancer (HCC) 12/23/2024 Telephone [facility] Obstetrics and Gynecology [address] [place] [address] Lary Dutton from Last 3 [...] mg extended release tabletIndications:C oronary arteriosclerosis in three [place] artery,Essential hypertension TAKE ONE-HALF TABLET BY MOUTH [...] artery disease of n ative artery of three [place] heart with stable angina pectoris (CMS/HCC) 08/16/2016 Overview (02/28/2017): CAD in three affiliated artery Assessment & Plan (07/15/2017 4:46 PM [...] for any changes to suggest any recent [place] etc EF has been good in 2016, [...] on file Legal Sex Female 4:40 PM BANKRUPTCY ASSISTANT Gender Identity Female 07/09/2023 10:03 PM CDT Sexual Orientation Straight 07/09/2023 10 :03 PM CDT Last Filed Vital Signs Vital Sign Reading Time Taken Comments Blood Pressure 116/68 01/24/2025 1:54 PM BANKRUPTCY ASSISTANT Pulse 60 01/24/2025 1:54 PM BANKRUPTCY ASSISTANT Temperature 36.8 C (98.2 F) 01/24/2025 1:54 PM BANKRUPTCY ASSISTANT Respiratory Rate 16 09/02/2024 10:45 AM CDT Oxygen Saturation 95% 01/24/2025 1:54 PM BANKRUPTCY ASSISTANT Inhaled Oxygen Concentration - - Weight 75.8 kg (167 lb 1.6 oz) 01/24/2025 1:54 P M BANKRUPTCY ASSISTANT Height 157.5 cm (5' 2 ) 09/24/2024 11:28 AM CDT Body Mass Index 30.56 09/24/2024 11:28 AM CDT Plan of Treatment Not on file Medical Devices Implanted Type Area Airplane First Officer Device Identifier Shelf Expiration Date Model / Serial / Lot [employer] Device Closure Vascade Od5 Fr Femoral Artery [id number] - [id number] Implanted:Qty: 1 on 08/27/2023 by Charlotte Goode MD at [facility] 06/09/2025 700-500DX-0 [id number] / / [id number] Procedures Procedure Name Priority Date/Time Associated [...] ORDERABLES Marlena galvan Result Performing Organization Address City/State/[facility] Co de Phone Number [facility]IN [facility] WITH [facility] [place] [address] from Last 3 Months or Most Recently Relevant to Health Maintenance Insurance UHC MEDICARE ADVANTAGE MEDICARE ADVANTAGE [facility] MEDICARE ADVANTAGE Advance Directives For more information, please contact: [phone] * Full Code (Latest Code Status on File) Date Activated Date Inactivated Comments 03/15/2024 5:08 PM 03/16/2024 5:35 PM * Full Code Date Activated Date Inactivated Comments 08/27/2023 12:10 PM 08/27/2023 6:25 PM Care Teams Lead Supply Worker Relationship Specialty Start Date End Date Sindy Carrillo MD PCP - General 03/12/07 Emerald Evans NP [address] [place] [address] Nurse Practitioner Cardiovascular Disease 03/31/24 Luis E Banks MD [address] [place] [address] Consulting Physician Obstetrics and Gynecology 03/31/24
--- OUTSIDE RECORDS SUMMARY | 2025-03-04 17:39 | XMS_ITS ---
Author Organization [facility] [address] Address [address] [place] [address] Care Team Providers Care Astronomy Department Chair Name Role Phone Sindy Carrillo MD Primary Care Provider [phone] Emerald Evans NP Unavailable [phone] Luis E Banks MD Unavailable [phone] Active Problems Problem Noted Date Diagnosed Date Endometrial cancer 03/04/2024 Cancer Staging:Pathologic stage from 03/15/2024:FIGO Stage IB(pT1b, pN0, cM0) - Signed by Ashleigh Carreon, ITZEL on 03/31/2024 Abnormal stress test 08/07/2023 Bradycardia 11/03/2019 History of coronary artery bypass surgery 2015 Overview (02/28/2017): Hx of CABG Coronary artery disease of n ative artery of [place] heart with stable angina pectoris ([facility]) 08/16/2016 Overview (02/28/2017): CAD in [place] artery Assessment & Plan (07/15/2017 4:46 PM [...] for any changes to suggest any recent [place] etc EF has been good in 2016, so likely still fine. Pure hypercholesterolemia 01/19/2008 Overview (02/28/2017): PURE HYPERCHOLESTEROLEM Assessment & Plan (07/15/2017 4:48 PM CDT): 05/2017 total cholesterol 128, LDL 56, at goal with rosuvastatin 40 mg daily.
--- OUTSIDE RECORDS SUMMARY | 2025-03-04 17:39 | XMS_ITS | Clinical Summary ---
Author Organization [facility] Address [address] [place] [address] Care Team Providers Care Legal Consultant Name Role Phone Sindy Carrillo MD Primary Care Provider [phone] Social History Tobacco Use Types Packs/Day Years [...] age to complete this topic Care Teams Legal Consultant Relationship Specialty Start Date End Date Sindy Carrillo MD PCP - General 01/11/14
--- OUTSIDE RECORDS SUMMARY | 2025-03-04 17:39 | XMS_ITS | Clinical Summary ---
Author Organization [facility] [address] Address [address] [place] [address] Care Team Providers Care Risk Management Consultant Name Role Phone Sindy Carrillo MD Primary Care Provider [phone] Emerald Evans NP Unavailable [phone] Luis E Banks MD Unavailable [phone] Allergies Active Allergy Reactions Criticality Noted Date [...] mg extended release tabletIndications:C oronary arteriosclerosis in [place] artery,Essential hypertension TAKE ONE-HALF TABLET BY MOUTH [...] artery disease of n ative artery of [place] heart with stable angina pectoris ([facility]) 08/16/2016 Overview (02/28/2017): CAD in [place] artery Assessment & Plan (07/15/2017 4:46 PM [...] for any changes to suggest any recent MT etc EF has been good in 2016, so likely still fine. Pure hypercholesterolemia 01/19/2008 Overview (02/28/2017): PURE HYPERCHOLESTEROLEM Assessment & Plan (07/15/2017 4:48 PM CDT): 05/2017 total cholesterol 128, LDL 56, at goal with rosuvastatin 40 mg daily. Encounters Date Type Department Care Team Description 01/24/2025 2:00 PM PROFESSOR OF INDUSTRIAL TECHNOLOGY Office Visit [facility] Obstetrics and Gynecology [address] [place] [address] [place] [phone] Ashleigh Carreon NP Encounter for routine cancer follow-up (Primary Dx); Endometrial cancer (HCC) 12/23/2024 Telephone [facility] Obstetrics and Gynecology [address] [place] [address] [place] [phone] Lary Dutton from Last 3 Months Immunizations [...] cancer Father Dami Maya Early Mother Magdalena Maya Memory loss Sister Milly Alvarez Cancer Son [...] on file Legal Sex Female 4:40 PM PROFESSOR OF INDUSTRIAL TECHNOLOGY Gender Identity Female 07/09/2023 10:03 PM CDT [...] Comments Blood Pressure 116/68 01/24/2025 1:54 PM PROFESSOR OF INDUSTRIAL TECHNOLOGY Pulse 60 01/24/2025 1:54 PM PROFESSOR OF INDUSTRIAL TECHNOLOGY Temperature 36.8 C (98.2 F) 01/24/2025 1:54 PM PROFESSOR OF INDUSTRIAL TECHNOLOGY Respiratory Rate 16 09/02/2024 10:45 AM CDT Oxygen Saturation 95% 01/24/2025 1:54 PM PROFESSOR OF INDUSTRIAL TECHNOLOGY Inhaled Oxygen Concentration - - Weight 75.8 kg (167 lb 1.6 oz) 01/24/2025 1:54 P M PROFESSOR OF INDUSTRIAL TECHNOLOGY Height 157.5 cm (5' 2 ) 09/24/2024 [...] 10/15/2017, 07/25 Medical Devices Implanted Type Area Mica Spreader Device Identifier Shelf Expiration Date Model / Serial / Lot [employer] Device Closure Vascade Od5 Fr Femoral Artery [id number] - [id number] Implanted:Qty: 1 on 08/27/2023 by Charlotte Goode MD at [facility] 06/09/2025 [id number] / / [id number] Procedures Procedure Name Priority Date/Time Associated [...] MD LAB BLOOD ORDERABLES [facility]len[facility]van [facility] Department [place] [address] from Last 3 Months or Most Recently Relevant to Health Maintenance Insurance [employer] MEDICARE ADVANTAGE [facility] MEDICARE ADVANTAGE [facility] MEDICARE ADVANTAGE Advance Directives For more information, please contact: [phone] * Full Code (Latest Code Status on File) Date Activated Date Inactivated Comments 03/15/2024 5:08 PM 03/16/2024 5:35 PM * Full Code Date Activated Date Inactivated Comments 08/27/2023 12:10 PM 08/27/2023 6:25 PM Care Teams Risk Management Consultant Relationship Specialty Start Date End Date Sindy Carrillo MD PCP - General 03/12/07 Emerald Evans NP [address] [place] [address] Nurse Practitioner Cardiovascular Disease 03/31/24 Luis E Banks MD [address] [place] [address] Consulting Physician Obstetrics and Gynecology 03/31/24
[2025-03-04] MEDS: ACETAMINOPHEN 500 MG TABLET 1000 MG PO (19:13)
[2025-03-04] MEDS: LIDOCAINE 5% PATCH 1 PATCH TRANSDERM (19:30)
[2025-03-04 19:38] VITALS: BP 128/86; PULSE 76; RESP 16; TEMP 36.5; O2SAT 98
== END 2025-03-04 19:39 | disposition home or self-care (01) ==
PROVIDERS: Emergency Provider Physician Assistant; PCP Family Medicine
DX: S20.221A Contusion of right back wall of thorax, initial encounter (principal); I10 Essential (primary) hypertension; I25.10 Atherosclerotic heart disease of native coronary artery without angina pectoris; E03.9 Hypothyroidism, unspecified; E78.2 Mixed hyperlipidemia; E11.9 Type 2 diabetes mellitus without complications; E55.9 Vitamin D deficiency, unspecified; M85.80 Other specified disorders of bone density and structure, unspecified site; M19.90 Unspecified osteoarthritis, unspecified site; F32.5 Major depressive disorder, single episode, in full remission; Z96.659 Presence of unspecified artificial knee joint; Z85.42 Personal history of malignant neoplasm of other parts of uterus; Z90.49 Acquired absence of other specified parts of digestive tract; Z79.82 Long term (current) use of aspirin; Z79.899 Other long term (current) drug therapy; I51.7 Cardiomegaly; M47.812 Spondylosis without myelopathy or radiculopathy, cervical region; M51.369 Other intervertebral disc degeneration, lumbar region without mention of lumbar back pain or lower extremity pain; M51.34 Other intervertebral disc degeneration, thoracic region; W10.9XXA Fall (on) (from) unspecified stairs and steps, initial encounter
CPT/HCPCS: 70450; 71046; 72125; 72128; 72131; 99284; A9270